=== PATIENT | male | born 1995 | race African-American/Black ===

== ENCOUNTER 2022-07-28 23:28 | Emergency (ER) | payer SELFPAY ==
[~2022-07-28] VITALS: Ht 180.3 cm; Wt 93.9 kg
--- NOTE | 2022-07-29 | NUR ---
Dr. Dao evaluated patient at bedside. MSE in progress.
[2022-07-29] MEDS ORDERED: ONDANSETRON 4 MG/2 ML VIAL ONE (00:04)
[2022-07-29] MEDS: IV NORMAL SALINE 1000 ML BAG IV ONE (00:05)
[2022-07-29] MEDS: ONDANSETRON 4 MG/2 ML VIAL IV ONE (00:05)
[2022-07-29] MEDS ORDERED: ONDA4TAB5 PO (00:08)
[2022-07-29 00:17] LABS: CREATININE 1.1 mg/dL (0.6-1.3); POTASSIUM 3.9 mmol/L (3.5-5.1)
[2022-07-29 00:19] LABS: HEMATOCRIT 45.4 % (36.7-47.1); MEAN CORPUSCULAR HEMOGLOBIN 31.4 uug (23.8-33.4); MEAN CORPUSCULAR VOLUME 93.9 fL (73.0-96.2); PLATELET COUNT (AUTO) 271 K/uL (152-348)
[2022-07-29 00:28] LABS: BILIRUBIN,DIRECT 0.1 mg/dL (0.0-0.2); BILIRUBIN,TOTAL 0.5 mg/dL (0.2-1.0); TOTAL PROTEIN, SERUM 7.2 g/dL (6.4-8.2)
[2022-07-29 01:01] VITALS: BP 115/75
--- NOTE | 2022-07-29 01:01 | NUR ---
Patient discharged to home in stable condition. Written and verbal after care instructions given. Patient verbalizes understanding of instructions. Stressed follow up or return to ER for worsening s/s.
== END 2022-07-29 01:02 | disposition home or self-care (01) ==
LOC: ER 23:28
DX: R11.2 Nausea with vomiting, unspecified (principal); Z79.899 Other long term (current) drug therapy
CPT/HCPCS: 99283; 36415; 80076; 80048; 83690; 85025; J2405; J7040; A4663